=== PATIENT | male | born 1975 | race Caucasian/White ===

== ENCOUNTER 2023-05-25 11:58 | Outpatient (CLI) | payer OTHER, SELFPAY ==
--- NOTE | 2023-05-25 13:13 | W.ANESCHARGE ---
Anesthesia Charges Start Date/Time Anesthesia Start Date: 05/25/23 Anesthesia Start Time: 12:56 Stop Date/Time Anesthesia Stop Date: 05/25/23 Anesthesia Stop Time: 13:21
--- NOTE | 2023-05-25 13:22 | W.ANESCHARGE ---
Anesthesia Charges Start Date/Time Anesthesia Start Date: 05/25/23 Anesthesia Start Time: 12:56 Stop Date/Time Anesthesia Stop Date: 05/25/23 Anesthesia Stop Time: 13:21
== END 2023-05-25 11:59 | disposition home or self-care (01) ==
LOC: OP CLINIC 12:03
PROVIDERS: Visit Provider Surgery
DX: K92.1 Melena (principal); K60.2 Anal fissure, unspecified; K63.5 Polyp of colon
CPT/HCPCS: 00811; 45385; 88305; J2704